=== PATIENT | male | born 1940 | race Caucasian/White ===

== ENCOUNTER 2023-01-13 15:19 | Emergency (ER) | payer MEDICARE | END 2023-01-13 16:18 | disposition home or self-care (01) | LOC: KA.ED 15:19 | DX: H92.22 Otorrhagia, left ear (principal) | CPT/HCPCS: 99282; 99283 ==

== ENCOUNTER 2024-02-03 14:03 | Emergency (ER) | payer MEDICARE ==
[2024-02-03] MEDS: Lidocaine 1% 5 ML VIAL INJECT ONE (14:11)
[2024-02-03] MEDS: Bacitracin/Neomycin/Polymyxin B Oint 0.9 GM U/D Packet TOP ONE (14:30)
[2024-02-03] MEDS: Diphtheria,Pertussis(Acell),Tetanus Vaccine 0.5 ML Syringe IM ONE (14:36)
[2024-02-03] MEDS: Lidocaine 1% 5 ML VIAL ONE (14:45)
== END 2024-02-03 14:45 | disposition home or self-care (01) ==
LOC: KA.ED 14:03
DX: S61.012A Laceration without foreign body of left thumb without damage to nail, initial encounter (principal); Z79.899 Other long term (current) drug therapy; Z23 Encounter for immunization; W26.8XXA Contact with other sharp object(s), not elsewhere classified, initial encounter; Y93.89 Activity, other specified
CPT/HCPCS: 12002; 90471; 90715; 99282-25; J3490

== ENCOUNTER 2024-08-29 20:40 | Emergency (ER) | payer MEDICARE, OTHER ==
[2024-08-29 21:09] LABS: APPEARANCE,URINE CLEAR (CLEAR); BILIRUBIN,URINE NEGATIVE (NEGATIVE); COLOR,URINE YELLOW (YELLOW); GLUCOSE,URINE NEGATIVE (NEGATIVE); KETONES,URINE NEGATIVE (NEGATIVE); LEUKOCYTE ESTERASE,URINE NEGATIVE (NEGATIVE); NITRITE,URINE NEGATIVE (NEGATIVE); OCCULT BLOOD,URINE NEGATIVE (NEGATIVE); PROTEIN,URINE NEGATIVE (NEGATIVE)
[2024-08-29] MEDS: Sodium Chloride 0.9% 10 ML Syringe FLUSH PRN (21:12)
[2024-08-29 21:18] LABS: BASOPHILS ABSOLUTE AUTO 0.01 10^3/uL (0.00-0.10); BASOPHILS PERCENT AUTO 0.1 % (0.0-1.0); HEMATOCRIT 41.9 % (40.0-52.0); HEMOGLOBIN 13.5 g/dL (13.0-17.0); IMMATURE GRAN ABSOLUTE AUTO 0.03 10^3/uL (0.00-0.04); IMMATURE GRAN PERCENT AUTO 0.2 % (0.0-0.4); LYMPHOCYTES ABSOLUTE AUTO 0.39 10^3/uL (1.00-4.00); MEAN CORPUSCULAR HEMOGLOBIN 29.6 pg (27.0-31.0); MEAN CORPUSCULAR HGB CONC 32.2 g/dL (32.0-36.0); MEAN CORPUSCULAR VOLUME 91.9 fL (82.0-92.0); MEAN PLATELET VOLUME 10.4 fL (7.4-10.4); MONOCYTES ABSOLUTE AUTO 0.68 10^3/uL (0.10-0.80); MONOCYTES PERCENT AUTO 5.2 % (2.0-8.0); NEUTROPHILS ABSOLUTE AUTO 11.97 10^3/uL (2.50-7.00); NEUTROPHILS PERCENT AUTO 91.5 % (50.0-70.0); PLATELET COUNT,PLT 133 10^3/uL (150-400); RED BLOOD CELL COUNT 4.56 10^6/uL (4.50-6.00); RED CELL DISTRIBUTION WIDTH 13.3 % (11.5-14.5); WHITE BLOOD CELL COUNT,WBC 13.08 10^3/uL (5.00-10.00)
[2024-08-29] MEDS: Sodium Chloride 0.9% 1,000 ML IV ONE (21:18)
[2024-08-29 21:33] LABS: ALANINE AMINOTRANSFERASE,ALT 155 U/L (14-63); ALBUMIN 3.38 g/dL (3.40-5.00); ALKALINE PHOSPHATASE 85 U/L (46-116); ANION GAP 15.9 mmol/L (5-15); ASPARTATE AMNIOTRANSFERASE,AST 143 U/L (15-37); BILIRUBIN TOTAL 3.6 mg/dL (0.2-1.0); BLOOD UREA NITROGEN,BUN 28 mg/dL (7-18); CHLORIDE,CL 106 mmol/L (98-107); CREATININE 1.39 mg/dL (0.51-1.17); GLUCOSE RANDOM 127 mg/dL (70-140); POTASSIUM,K 3.9 mmol/L (3.5-5.1); PROTEIN TOTAL,TP 6.4 g/dL (6.4-8.2); SODIUM,NA 143 mmol/L (136-145)
[2024-08-29 21:35] LABS: ESTIMATED GFR 50 mL/min (>=60)
[2024-08-29 21:53] LABS: AMYLASE 33 U/L (25-125); LIPASE 38 U/L (16-77)
[2024-08-29] MEDS: Sodium Chloride 0.9% 50 ML IV SCH (22:34)
[2024-08-29] MEDS: Iopamidol 755 Mg/ML 100 ML Bottle IV ONE (22:34)
[2024-08-30 01:25] VITALS: BP 122/58; PULSE 88
== END 2024-08-29 23:16 | disposition home or self-care (01) ==
LOC: KA.ED 20:40
DX: K30 Functional dyspepsia (principal); I95.1 Orthostatic hypotension; E86.0 Dehydration; R74.8 Abnormal levels of other serum enzymes; Z79.899 Other long term (current) drug therapy
CPT/HCPCS: 36415; 74177; 80053; 81003; 82150; 83690; 85025; 93010; 96360; 99284; 99284-25; J3490; J7030; Q9967

== ENCOUNTER 2024-11-03 16:11 | Emergency (ER) | payer MEDICARE ==
[2024-11-03] MEDS ORDERED: Sodium Chloride 0.9% 10 ML Syringe FLUSH PRN (16:35)
[2024-11-03 16:59] LABS: BASOPHILS ABSOLUTE AUTO 0.01 10^3/uL (0.00-0.10); BASOPHILS PERCENT AUTO 0.1 % (0.0-1.0); HEMOGLOBIN 13.5 g/dL (13.0-17.0); IMMATURE GRAN ABSOLUTE AUTO 0.13 10^3/uL (0.00-0.04); IMMATURE GRAN PERCENT AUTO 0.7 % (0.0-0.4); LYMPHOCYTES ABSOLUTE AUTO 0.36 10^3/uL (1.00-4.00); LYMPHOCYTES PERCENT AUTO 1.9 % (20.0-40.0); MEAN CORPUSCULAR HEMOGLOBIN 29.7 pg (27.0-31.0); MEAN CORPUSCULAR HGB CONC 32.1 g/dL (32.0-36.0); MEAN CORPUSCULAR VOLUME 92.3 fL (82.0-92.0); MEAN PLATELET VOLUME 10.6 fL (7.4-10.4); MONOCYTES ABSOLUTE AUTO 1.03 10^3/uL (0.10-0.80); MONOCYTES PERCENT AUTO 5.4 % (2.0-8.0); NEUTROPHILS ABSOLUTE AUTO 17.67 10^3/uL (2.50-7.00); NEUTROPHILS PERCENT AUTO 91.9 % (50.0-70.0); PLATELET COUNT,PLT 150 10^3/uL (150-400); RED BLOOD CELL COUNT 4.55 10^6/uL (4.50-6.00); RED CELL DISTRIBUTION WIDTH 13.7 % (11.5-14.5)
[2024-11-03] MEDS: Sodium Chloride 0.9% 1,000 ML IV ONE ×3 (17:26→21:49)
[2024-11-03 17:27] LABS: ALANINE AMINOTRANSFERASE,ALT 183 U/L (14-63); ALBUMIN 3.14 g/dL (3.40-5.00); ALKALINE PHOSPHATASE 69 U/L (46-116); AMYLASE 34 U/L (25-125); ANION GAP 15.9 mmol/L (5-15); ASPARTATE AMNIOTRANSFERASE,AST 142 U/L (15-37); BILIRUBIN TOTAL 4.8 mg/dL (0.2-1.0); BLOOD UREA NITROGEN,BUN 23 mg/dL (7-18); C-REACTIVE PROTEIN 6.38 mg/dL (0.00-0.50); CALCIUM 9.3 mg/dL (8.7-10.3); CARBON DIOXIDE,CO2 25.8 mmol/L (21.0-32.0); CHLORIDE,CL 104 mmol/L (98-107); CREATININE 1.65 mg/dL (0.51-1.17); GLUCOSE RANDOM 155 mg/dL (70-140); LIPASE 31 U/L (16-77); POTASSIUM,K 4.7 mmol/L (3.5-5.1); PROTEIN TOTAL,TP 6.2 g/dL (6.4-8.2); SODIUM,NA 141 mmol/L (136-145)
[2024-11-03 17:28] LABS: B-TYPE NATRIURETIC PEPTIDE,BNP 147 pg/mL (0-100)
[2024-11-03 17:34] LABS: ESTIMATED GFR 40 mL/min (>=60)
[2024-11-03] MEDS: Sodium Chloride 0.9% 50 ML IV ONE (17:55)
[2024-11-03] MEDS ORDERED: Sodium Chloride 0.9% 50 ML IV ONE (18:13)
[2024-11-03] MEDS ORDERED: Iopamidol 755 Mg/ML 100 ML Bottle IV ONE (18:16)
[2024-11-03] MEDS: Iopamidol 755 Mg/ML 100 ML Bottle IV ONE (18:17)
[2024-11-03 18:46] LABS: APPEARANCE,URINE CLEAR (CLEAR); BILIRUBIN,URINE MODERATE (NEGATIVE); COLOR,URINE AMBER (YELLOW); GLUCOSE,URINE NEGATIVE (NEGATIVE); KETONES,URINE NEGATIVE (NEGATIVE); LEUKOCYTE ESTERASE,URINE NEGATIVE (NEGATIVE); NITRITE,URINE NEGATIVE (NEGATIVE); OCCULT BLOOD,URINE NEGATIVE (NEGATIVE); PROTEIN,URINE 30 mg/dL (NEGATIVE)
[2024-11-03] MEDS: metroNIDAZOLE/Normal Saline 500 MG in Premix Bag 1 BAG IV ONE (18:49)
[2024-11-03 18:54] LABS: BACTERIA,URINE NOT SEEN /HPF (NONE TO FEW); EPITHELIAL CELLS,URINE MANY /LPF; MUCUS,URINE OCCASIONAL /LPF (NEGATIVE); RBC,URINE NOT SEEN /HPF (0-5); WBC,URINE 0-5 /HPF (0-5)
[2024-11-03] MEDS: Ciprofloxacin in D5W 400 MG in Premix Bag 1 BAG IV ONE (19:49)
[2024-11-03] MEDS: Sodium Chloride 0.9% 1,000 ML IV SCH (22:38)
== END 2024-11-04 ==
LOC: KA.ED 16:11
DX: A41.9 Sepsis, unspecified organism (principal); R65.20 Severe sepsis without septic shock; N17.9 Acute kidney failure, unspecified; K83.1 Obstruction of bile duct; E86.0 Dehydration; D72.829 Elevated white blood cell count, unspecified; R94.5 Abnormal results of liver function studies; R74.02 Elevation of levels of lactic acid dehydrogenase [LDH]; I12.9 Hypertensive chronic kidney disease with stage 1 through stage 4 chronic kidney disease, or unspecified chronic kidney disease; N18.32 Chronic kidney disease, stage 3b; E78.00 Pure hypercholesterolemia, unspecified; Z79.899 Other long term (current) drug therapy
CPT/HCPCS: 36415; 71045; 74177; 80053; 81001; 82150; 83605; 83690; 83880; 84484; 85025; 86140; 87040; 87077; 87186; 93010; 96361; 96365; 96367; 99284; 99285-25; J0744; J1836; J7030; Q9967